=== PATIENT | female | born 1990 ===

== ENCOUNTER 2017-07-09 12:23 | Emergency (ER) | payer MEDICAID ==
[2017-07-09 12:23] VITALS: BMI 26.2
[2017-07-09 12:31] VITALS: BP 108/67; PULSE 92; RESP 20; TEMP 99.1; O2SAT 100
== END 2017-07-09 14:11 | disposition home or self-care (01) ==
LOC: H.ER 12:23
DX: H92.03 Otalgia, bilateral (principal); J20.8 Acute bronchitis due to other specified organisms

== ENCOUNTER 2018-12-02 03:51 | Emergency (ER) | payer SELFPAY ==
[2018-12-02 04:14] VITALS: BMI 29.9
[2018-12-02 04:17] VITALS: O2SAT 100
--- NOTE | 2018-12-02 05:48 | ED PDOC ---
HPI: General Adult Time Seen by Provider: 12/02/18 04:10 Chief Complaint (Nursing): Abdominal Pain Chief Complaint (Provider): Rib Pain History Per: Patient History/Exam Limitations: no limitations Onset/Duration Of Symptoms: Days (x5) Additional Complaint(s): 28 years old female with no significant PMHx presents to ER for experiencing right sided rib pain for the past 5 days. Patient reports pain worsens when she lays flat. She reports taking Ibuprofen that helped a little but states she still has pain. Patient denies any urinary symptoms, fever, nausea, vomiting or abdominal pain. PMD: None provided Past Medical History Reviewed: Historical Data, Nursing Documentation, Vital Signs Vital Signs: Last Vital Signs Temp 98.3 F 12/02/18 04:13 Pulse 107 H 12/02/18 04:13 Resp 18 12/02/18 04:13 BP 106/76 12/02/18 04:13 Pulse Ox 100 12/02/18 04:13 - Medical History PMH: No Chronic Diseases - Surgical History Surgical History: No Surg Hx - Family History Family History: States: Unknown Family Hx - Social History Current smoker - smoking cessation education provided: No Alcohol: None Drugs: Denies - Home Medications Home Medications: Ambulatory Orders Medication Instructions Recorded Vit37/Iron/Folic Acid 1 tab PO DAILY 03/02/15 [Prenata] Cetirizine HCl [Zyrtec] 10 mg PO DAILY #10 capsule 08/09/16 Azithromycin [Zithromax] 250 mg PO DAILY #6 tab 07/09/17 Guaifen/Phenyleph/Acetaminophn 1 tab PO BID #14 tab 07/09/17 [Mucinex Fast-Max Cold & Sinus 325 mg-200 mg-5] Cyclobenzaprine [Cyclobenzaprine 10 mg PO BID #15 tab 12/02/18 HCl] Ketorolac Tromethamine [Toradol] 10 mg PO BID #20 tab 12/02/18 Lidocaine 1 each TP DAILY #10 adh..patch 12/02/18 - Allergies Allergies/Adverse Reactions: Allergies Allergy/AdvReac Type Severity Reaction Status Date / Time No Known Allergies Allergy Verified 12/02/18 04:13 Review of Systems ROS Statement: Except As Marked, All Systems Reviewed And Found Negative Constitutional: Negative for: Fever Gastrointestinal: Negative for: Nausea, Vomiting, Abdominal Pain Musculoskeletal: Positive for: Other (Right sided rib pain) Physical Exam - Reviewed Nursing Documentation Reviewed: Yes Vital Signs Reviewed: Yes - Physical Exam Appears: Positive for: Well, No Acute Distress Head Exam: Positive for: ATRAUMATIC, NORMOCEPHALIC Skin: Positive for: Normal Color, Warm, Dry Cardiovascular/Chest: Positive for: Regular Rate, Rhythm. Negative for: Murmur Respiratory: Positive for: Normal Breath Sounds, Other (Tenderness to lateral rib wall without crepitus swelling). Negative for: Respiratory Distress Gastrointestinal/Abdominal: Positive for: Normal Exam, Soft. Negative for: Tenderness Back: Positive for: Normal Inspection. Negative for: L CVA Tenderness, R CVA Tenderness Extremity: Positive for: Normal ROM Neurological/Psych: Positive for: Awake, Alert, Oriented (x3) - ECG O2 Sat by Pulse Oximetry: 100 (RA) Pulse Ox Interpretation: Normal Medical Decision Making Medical Decision Making: Time: 446 A/P: Rib pain very unlikely related to kidneys --Obtain plain film --Will treat symptomatically 630 --Xray negative --UA is negative for blood or infection --Will treat as outpatient for musculoskeletal pain --Very well appearing upon discharge Scribe Attestation: Documented by Zoë Naranjo, acting as a scribe for Kanu Nugent MD. Provider Scribe Attestation: All medical record entries made by the Scribe were at my direction and personally dictated by me. I have reviewed the chart and agree that the record accurately reflects my personal performance of the history, physical exam, medical decision making, and the department course for this patient. I have also personally directed, reviewed, and agree with the discharge instructions and disposition. Disposition - Clinical Impression Clinical Impression: Rib pain - Patient ED Disposition Is Patient to be Admitted: No - Disposition Referrals: Irais Mistry [Outside] Disposition: Routine/Home Disposition Time: 06:28 Condition: IMPROVED Prescriptions: Cyclobenzaprine [Cyclobenzaprine HCl] 10 mg PO BID #15 tab Ketorolac Tromethamine [Toradol] 10 mg PO BID #20 tab Lidocaine 1 each TP DAILY #10 adh..patch Instructions: Pleuritic Chest Pain Forms: [employer] (Irish)
[2018-12-02 06:09] LABS: SQUAMOUS EPITHIAL 7 /hpf (0-5); URINE BACTERIA RARE (<OCC); URINE BILIRUBIN NEGATIVE (NEGATIVE); URINE BLOOD NEGATIVE (NEGATIVE); URINE CLARITY SLIGHTY-CLOUDY (Clear); URINE COLOR YELLOW (YELLOW); URINE GLUCOSE (UA) NEG (NEGATIVE); URINE LEUKOCYTE ESTERASE NEG Leu/uL (Negative); URINE PROTEIN NEGATIVE (NEGATIVE); URINE UROBILINOGEN 0.2-1.0 mg/dL (0.2-1.0)
[2018-12-02 06:51] VITALS: BP 107/69; PULSE 70; RESP 16; TEMP 98.1
--- NOTE | 2018-12-02 08:57 | RAD ---
Date of service: 12/02/2018 PROCEDURE: Radiographs of the Chest and Right Ribs. HISTORY: R sided rib pain COMPARISON: Chest radiographs 07/09/2017. TECHNIQUE: Frontal radiograph of the chest and multiple oblique radiographs of the right ribs were obtained. 4 views obtained. FINDINGS: RIGHT RIBS: No fracture or focal lesion visualized. LUNGS: Clear. PLEURA: No pneumothorax or pleural fluid. CARDIOVASCULAR: Normal cardiac size. No pulmonary vascular congestion. No aortic atherosclerotic calcification present OTHER FINDINGS: None. IMPRESSION: Unremarkable radiographs of the chest and right ribs. No right rib fracture. No interval cardiopulmonary change appreciate compared prior chest radiographs 07/09/2017.
[2018-12-02] MEDS ORDERED: Dexamethasone 4 mg/1 ml ONE (09:36)
== END 2018-12-02 06:50 | disposition home or self-care (01) ==
LOC: H.ER 03:51
DX: R07.82 Intercostal pain (principal)
CPT/HCPCS: 71101; 81003; 81025; 96372; 99283; J1885